=== PATIENT | female | born 1970 ===

== ENCOUNTER 2022-01-03 16:12 | Inpatient (IN) ==
--- NOTE | 2022-01-03 16:54 | Emergency Department Note ---
HPI General Chief complaint: Shortness of Breath/Dyspnea Stated complaint: CHF Time Seen by Provider: 01/03/22 16:34 Source: patient Mode of arrival: wheelchair Limitations: no limitations History of Present Illness HPI Narrative: Narrative: 51-year-old female presents to the emergency department with a 1 week history of orthopnea. She states anytime she lays down she has to sit back up to catch her breath. She has been up multiple times at night because she is short of breath. She denies chest pain or cough. She has had some swelling in her legs and abdomen. On review of systems patient admits to sweats and chills at times, feeling firm in her abdomen, and difficulty starting her urinary stream. Her past medical history is positive for hypertension. Patient was seen at the [facility] prior to coming to the emergency department. She had a chest x-ray showing heart failure. Labs are drawn prior to coming to the emergency department and CBC, CMP, and troponin are pending. Related Data Home Medications Medication Instructions Recorded Confirmed lisinopril 10 mg tablet 10 mg PO QDAY 01/03/22 01/03/22 Allergies Allergy/AdvReac Type Severity Reaction Status Date / Time No Known Drug Allergies Allergy Verified 01/03/22 21:55 Review of Systems ROS ROS Narrative: Narrative: All systems ED: reviewed and negative except as stated. [facility] Narrative Patient History Narrative: Narrative: Medical/Surgical/Family History All Active Problems (Updated 01/03/22 @ 19:53 by Amparo Ibarra PA-C) Congestive heart failure (Acute) Social History Smoking Status: Former smoker Exam Narrative Narrative: Narrative: General Limitations: no limitations Head Head: Present atraumatic and normocephalic Neck Neck: Present normal inspection and other (No JVD) Chest Chest: Present normal inspection Respiratory Respiratory: Present rales/crackles Cardiovascular Cardiovascular: Present regular rate and normal heart sounds Adbominal Abdominal: Present other (Firm lower abdomen); Absent tenderness Extremities Extremities: Present other (2+ edema bilaterally) Back Back: Present normal inspection Neurological Neurological: Present alert and oriented X3 Skin Skin: Present warm (WNL) and dry Course Vital Signs Vital signs: Vital Signs Temperature 97.7 F 01/03/22 16:14 Pulse Rate 97 H 01/03/22 16:14 Respiratory Rate 20 01/03/22 16:14 Blood Pressure 172/115 01/03/22 16:14 Pulse Oximetry (%) 97 01/03/22 16:14 Oxygen Delivery Method 01/03/22 16:14 Temperature 97.0 F 01/04/22 04:01 Pulse Rate 88 01/04/22 08:03 Respiratory Rate 15 01/04/22 08:03 Blood Pressure 141/111 01/04/22 08:01 Pulse Oximetry (%) 99 01/04/22 08:03 Oxygen Delivery Method 01/04/22 06:01 Oxygen Flow Rate (L/min) 2 01/04/22 06:01 MDM MDM Narrative Medical decision making narrative: Narrative: EKG normal sinus rhythm, rate of 94, no ST segment changes, normal axis, normal intervals. Labs reviewed. Chest x-ray shows pulmonary edema questionable left lower quadrant infiltrate. BNP is 9044. She was dosed with Lasix 40 mg IV. I spoke with Dr. Flynn, hospitalist, who is agreed to admit this patient. Lab Data Result diagrams: 01/04/22 05:16 01/04/22 05:16 Labs: Lab Results 01/03/22 01/03/22 01/03/22 Range/Units 15:57 16:55 16:55 WBC TNP RBC TNP Hgb TNP Hct TNP POC Hct (36-48) MCV TNP MCH TNP MCHC TNP RDW TNP Plt Count TNP MPV TNP Immature Gran % (Auto) TNP Neut % (Auto) TNP Lymph % (Auto) TNP [place] % (Auto) TNP Eos % (Auto) TNP Baso % (Auto) TNP Lymph # (Auto) TNP [place] # (Auto) TNP Eos # (Auto) TNP Baso # (Auto) TNP Immature Gran # TNP Absolute Neutrophils TNP Differential Comment TNP Haptoglobin 142 (30-200) mg/dL POC Sodium (133-145) POC Potassium (3.3-5.1) POC Chloride (96-108) POC Total CO2 (22-30) POC BUN (6-20) POC Creatinine (0.6-1.2) POC Glucose (70-105) POC WB Ioniz Calcium (1.16-1.32) Iron 28 L (37-145) ug/dL TIBC 437 H (228-428) ug/dl Unsat Iron Binding 409 H (112-346) mcg/dL Transferrin % Sat 6 L (15-50) % Ferritin 22.9 (13.0-150.0) ng/mL Total Bilirubin 2.0 H (0.1-1.0) mg/dL Direct Bilirubin 0.3 H (<0.3) mg/dL AST 41 H (<32) U/L ALT 25 (<40) U/L Alkaline Phosphatase 80 (39-117) U/L Lactate Dehydrogenase 529 H (135-225) U/L NT-Pro-B Natriuret Pep TNP Total Protein 6.9 (5.9-8.4) gm/dL Albumin 3.9 (3.2-5.2) gm/dL Globulin 3.0 (2.2-3.7) gm/dL Ur Random Creatinine (28.0-217.0) mg/dL U Random Total Protein mg/dL U [place] Prot/Creat Ratio (<0.20) 01/03/22 01/03/22 Range/Units 17:13 20:36 WBC RBC Hgb Hct POC Hct 37.0 (36-48) MCV MCH MCHC RDW Plt Count MPV Immature Gran % (Auto) Neut % (Auto) Lymph % (Auto) [place] % (Auto) Eos % (Auto) Baso % (Auto) Lymph # (Auto) [place] # (Auto) Eos # (Auto) Baso # (Auto) Immature Gran # Absolute Neutrophils Differential Comment Haptoglobin (30-200) mg/dL POC Sodium 141 (133-145) POC Potassium 4.8 (3.3-5.1) POC Chloride 108 (96-108) POC Total CO2 24.0 (22-30) POC BUN 27 H (6-20) POC Creatinine 0.9 (0.6-1.2) POC Glucose 96 (70-105) POC WB Ioniz Calcium 1.16 (1.16-1.32) Iron (37-145) ug/dL TIBC (228-428) ug/dl Unsat Iron Binding (112-346) mcg/dL Transferrin % Sat (15-50) % Ferritin (13.0-150.0) ng/mL Total Bilirubin (0.1-1.0) mg/dL Direct Bilirubin (<0.3) mg/dL AST (<32) U/L ALT (<40) U/L Alkaline Phosphatase (39-117) U/L Lactate Dehydrogenase (135-225) U/L NT-Pro-B Natriuret Pep Total Protein (5.9-8.4) gm/dL Albumin (3.2-5.2) gm/dL Globulin (2.2-3.7) gm/dL Ur Random Creatinine 60.8 (28.0-217.0) mg/dL U Random Total Protein 33 mg/dL U [place] Prot/Creat Ratio 0.54 H (<0.20) Discharge Plan Patient/Caregiver Discharge Instructions Pt seen by [employer] SUSPENSION AIDE/PA only: Yes Clinical Impression: Congestive heart failure Patient Disposition: Xfer As Inpt ([facility]) Discharge Date/Time: 01/03/22 21:36
[2022-01-03 17:17] LABS: POC Calcium, Ionized 1.16 (1.16-1.32); POC Creatinine 0.9 (0.6-1.2); POC Potassium 4.8 (3.3-5.1)
[2022-01-03 18:16] LABS: ALT/SGPT 25 U/L (<40); AST/SGOT 41 U/L (<32); Albumin 3.9 gm/dL (3.2-5.2); Alkaline Phosphatase 80 U/L (39-117); Bilirubin,Direct 0.3 mg/dL (<0.3)
[2022-01-03] MEDS ORDERED: FUROSEMIDE 40 MG/4 ML VIAL IV ONE (18:38)
--- NOTE | 2022-01-03 20:04 | Internal Med History&Physical ---
HPI History of Present Illness Patient information: Note initiated : 01/03/22 at 7:57 pm Service Date, if different from initiated Date: [] Patient: Tiffany Contreras a 51 y/o F admitted on for CHF. Chief Complaint: [] History of present illness: Ms. Contreras is a 51-year-old female with a history of hypertension previously treated with lisinopril but currently untreated, tobacco use disorder, obesity who presented to the emergency department with about 3 weeks of shortness of breath. The patient also endorses orthopnea symptoms over the last couple of weeks. Prior to the onset of her symptoms, the patient says she did not have any limitations secondary to shortness of breath but now she can barely accomplish simple activities of daily living without dyspnea. Associated with these symptoms are abdominal distention, bilateral lower extremity edema and diarrhea. The patient denies recent fevers chills, no chest pains. The patient denies alcohol use and substance use in general except for tobacco which she recently discontinued because she was short of breath. In the emergency department the patient was found to have a microcytic anemia with a hemoglobin of 9.8. Renal function and electrolytes were stable, the patient did have an elevated total bilirubin of 2.0 with a direct bilirubin component of 0.3. AST was mildly elevated at 41. NT proBNP was elevated at 9044. Chest x-ray was consistent with pulmonary vascular congestion. Clinically the patient appears to be an congestive heart failure. Review of systems Constitutional: no fever, fatigue, or weight loss Eyes: no vision changes or pain Cardiovascular: no chest pain, no palpitations Respiratory: Positive for dyspnea and orthopnea, positive for a cough occasionally productive of clear sputum Gastrointestinal: Positive for abdominal distention and diarrhea Genitourinary: Positive for difficulty voiding Musculoskeletal: Positive for bilateral lower extremity edema, no arthralgia or myalgia Integumentary: no skin lesion or wound Neurological: no focal weakness or numbness Psychiatric: Positive for anxiety and difficulty sleeping Physical exam Head: Atraumatic, normal inspection. Eyes: normal appearance, no scleral icterus. Neck: full ROM Respiratory: Respiratory rate in the mid 20s, bilateral crackles Cardiovascular: normal rate and rhythm, S1, S2. GI/Abdominal: Obesely distended, soft, nontender, no guarding. Extremities: Bilateral pitting edema, full range of motion, nontender. Neurological: CN II-XII intact, intact motor, intact sensation. Psychiatric: Appears mildly anxious. Skin: warm, normal color PFSH PFSH All Active Problems (Updated 01/03/22 @ 19:53 by Amparo Ibarra PA-C) Congestive heart failure (Acute) Social History smoking status: Former smoker MEDS/ALLERGIES Home Medications and Allergies Home Medications Medication Instructions Recorded Confirmed Type No Known Home Meds 01/03/22 01/03/22 History Allergies Allergy/AdvReac Type Severity Reaction Status Date / Time No Known Drug Allergies Allergy Verified 01/03/22 16:14 EXAM Constitutional Vitals: Temp Pulse Resp BP Pulse Ox O2 Del Method 97.7 F 94 H 25 H 140/102 99 01/03/22 16:14 01/03/22 18:18 01/03/22 19:39 01/03/22 17:18 01/03/22 18:18 01/03/22 16:14 DATA Data Completed and Pending Labs: Labs from last 24 hours 01/03/22 01/03/22 01/03/22 17:13 16:55 15:57 WBC TNP RBC TNP Hgb TNP Hct TNP POC Hct 37.0 MCV TNP MCH TNP MCHC TNP RDW TNP Plt Count TNP MPV TNP Immature Gran % (Auto) TNP Neut % (Auto) TNP Lymph % (Auto) TNP [place] % (Auto) TNP Eos % (Auto) TNP Baso % (Auto) TNP Lymph # (Auto) TNP [place] # (Auto) TNP Eos # (Auto) TNP Baso # (Auto) TNP Immature Gran # TNP Absolute Neutrophils TNP Differential Comment TNP POC Sodium 141 POC Potassium 4.8 POC Chloride 108 POC Total CO2 24.0 POC BUN 27 H POC Creatinine 0.9 POC Glucose 96 POC WB Ioniz Calcium 1.16 Total Bilirubin 2.0 H Direct Bilirubin 0.3 H AST 41 H ALT 25 Alkaline Phosphatase 80 NT-Pro-B Natriuret Pep TNP Total Protein 6.9 Albumin 3.9 Globulin 3.0 A/P Narrative A/P Narrative: Assessment: 51-year-old female with a history of hypertension, currently untreated, obesity admitted for dyspnea secondary to congestive heart failure. Patient's symptoms have been worsening for about 3 weeks, she does not have a prior diagnosis of heart failure. #Acute heart failure, suspect HFrEF #Microcytic anemia #Hyperbilirubinemia #Diarrhea #Essential hypertension #Obesity BMI 47 #At risk for LIZ Plan -Lasix 40 mg IV every 12 hours, titrate to effect. -Monitor renal function, electrolytes, urine output, daily weight. -Transthoracic echocardiogram. -Check iron studies, haptoglobin, LDH. -Check urine to protein creatinine ratio -Follow hemoglobin, consider endoscopic GI work-up if downtrending. -Follow LFTs, check INR. -Check TSH. -jet inspector while diuresing with IV diuretic. -Low-sodium diet. -PT consult. -Consider cardiology consult depending on echo results. -DVT prophylaxis: Lovenox -CODE STATUS: Full -Disposition: Home when stable. - Time Spent With Patient Time: Total time spent is greater than 50% in coordination of care (as documented) at patient's floor/unit and/or counseling patient:
[2022-01-03] MEDS ORDERED: ONDANSETRON 4 MG/2 ML VIAL IV PRN (21:51)
[2022-01-03] MEDS ORDERED: SENNOSIDES 1 TABLET PO PRN (21:51)
[2022-01-03] MEDS ORDERED: LACTULOSE 20 GM/30 ML ORAL.SOL PO PRN (21:51)
[2022-01-03] MEDS: DOCUSATE SODIUM 100 MG CAPSULE PO SCH (22:22)
[2022-01-03] MEDS: 0.9 % SODIUM CHLORIDE 10 ML SYRINGE IV SCH (22:22)
[2022-01-03 22:38] LABS: Ferritin 22.9 ng/mL (13.0-150.0)
[2022-01-04 00:03] LABS: Creatinine, Spot Urine 60.8 mg/dL (28.0-217.0); Pro:Crea Ratio 0.54 (<0.20)
[2022-01-04] MEDS ORDERED: cefTRIAXone 1 GM VIAL ONE (00:54)
[2022-01-04] MEDS: 0.9 % SODIUM CHLORIDE 10 ML SYRINGE IV SCH ×3 (05:16→19:59)
[2022-01-04] MEDS: ACETAMINOPHEN 325 MG TABLET PO PRN (06:14)
[2022-01-04 07:04] LABS: INR 1.1 (0.9-1.1); Prothrombin Time 14.8 sec (11.9-14.5)
[2022-01-04 07:14] LABS: Basophils # (Auto) 0.04 K/mcL (0.00-0.30); Basophils % (Auto) 0.4 % (0.0-2.0); Eosinophils % (Auto) 3.2 % (0.0-7.0); Hematocrit 32.5 % (34.1-44.9); Hemoglobin 9.6 g/dL (11.2-15.7); Lymphocytes # (Auto) 1.82 K/mcL (1.50-4.80); Lymphocytes % (Auto) 19.6 % (15.5-49.0); Mean Cell Volume 68.4 fL (80.0-100.0); Mean Corpuscular HGB Conc 29.5 g/dL (31.0-36.0); Monocytes # (Auto) 0.75 K/mcL (0.10-0.90); Monocytes % (Auto) 8.1 % (1.0-12.0); Neutrophils % (Auto) 68.4 % (38.0-78.0); Platelet Count 223 K/mcL (140-440); RBC 4.75 M/mcL (3.59-5.38); Red Cell Distribution Width 18.6 % (11.5-14.5); WBC 9.3 K/mcL (4.5-11.0)
[2022-01-04 07:32] LABS: ALT/SGPT 19 U/L (<40); AST/SGOT 21 U/L (<32); Albumin 3.3 gm/dL (3.2-5.2); Albumin/Globulin Ratio 1.2 (1.0-2.3); Alkaline Phosphatase 71 U/L (39-117); Bilirubin,Direct 0.3 mg/dL (<0.3); Blood Urea Nitrogen 16 mg/dL (6-20); Calcium 9.3 mg/dL (8.6-10.4); Carbon Dioxide 23 mmol/L (22-30); Chloride 106 mmol/L (96-108); Globulin 2.7 gm/dL (2.2-3.7); Glomerular Filtration Rate 58; Glucose 91 mg/dL (70-105); Lactate Dehydrogenase 318 U/L (135-225); Phosphorous 4.4 mg/dL (2.5-4.5); Thyroid Stimulating Hormone 4.29 uIU/mL (0.27-5.01); Triglycerides 64 mg/dL (<150); Uric Acid 6.6 mg/dL (2.5-8.0)
[2022-01-04] MEDS ORDERED: FUROSEMIDE 40 MG/4 ML VIAL IV SCH (08:00)
[2022-01-04] MEDS: DOCUSATE SODIUM 100 MG CAPSULE PO SCH ×2 (08:20→20:34)
[2022-01-04] MEDS: ENOXAPARIN 40 MG/0.4 ML SYRINGE SQ SCH (08:20)
[2022-01-04] MEDS: IRON SUCROSE COMPLEX 100 MG/5 ML VIAL IV SCH (08:20)
[2022-01-04] MEDS: FUROSEMIDE 40 MG/4 ML VIAL IV SCH ×2 (08:20→19:58)
[2022-01-04] MEDS: LISINOPRIL 10 MG TABLET PO SCH (08:55)
--- NOTE | 2022-01-04 16:36 | Internal Med Progress Note ---
SUBJECTIVE Subjective Patient information: Note initiated : 01/04/22 at 4:24 pm Service Date, if different from initiated Date: [] Patient: Tiffany Contreras a 51 y/o F admitted on 01/03/22 for CHF. Chief Complaint: [] Interval history: Ms. Contreras is a 51-year-old female with a history of hypertension previously treated with lisinopril but currently untreated, tobacco use disorder, obesity who presented to the emergency department with about 3 weeks of shortness of breath. The patient also endorses orthopnea symptoms over the last couple of weeks. Prior to the onset of her symptoms, the patient says she did not have any limitations secondary to shortness of breath but now she can barely accomplish simple activities of daily living without dyspnea. Associated with these symptoms are abdominal distention, bilateral lower extremity edema and diarrhea. The patient denies recent fevers chills, no chest pains. The patient denies alcohol use and substance use in general except for tobacco which she recently discontinued because she was short of breath. In the emergency department the patient was found to have a microcytic anemia with a hemoglobin of 9.8. Renal function and electrolytes were stable, the patient did have an elevated total bilirubin of 2.0 with a direct bilirubin component of 0.3. AST was mildly elevated at 41. NT proBNP was elevated at 9044. Chest x-ray was consistent with pulmonary vascular congestion. Clinically the patient appears to be an congestive heart failure. 11/10 Elevated blood pressure overnight and hypoxic while sleeping however the patient is on room air while awake. Diuresing well with IV Lasix 40 mg every 12 hours. Started lisinopril for elevated blood pressure. Patient likely has sleep apnea given nocturnal hypoxia, she is agreeable to try CPAP at bedtime. Later, the transthoracic echocardiogram report became available showing an LVEF of 25 to 30%, mildly dilated right ventricle, mildly reduced right ventricular systolic function. There was moderate mitral regurgitation and moderate tricuspid regurgitation. Started low-dose Toprol given reduced LVEF. Iron studies consistent with iron deficiency anemia, started Venofer IV. Patient has never had a colonoscopy, has not noticed melena or bloody stools. She denies recent vaginal bleeding. Hemoglobin level stable. Haptoglobin level normal. Urine protein creatinine level was mildly elevated at .54. TSH was normal. Physical exam Head: Atraumatic, normal inspection. Eyes: normal appearance, no scleral icterus. Neck: full ROM Respiratory: Respiratory rate in the teens to low 20s, no respiratory distress Cardiovascular: normal rate and rhythm, S1, S2. GI/Abdominal: Obesely distended, soft, nontender, no guarding. Extremities: Improving bilateral pitting edema, full range of motion, nontender. Neurological: CN II-XII intact, intact motor, intact sensation. Psychiatric: Appears mildly anxious. Skin: warm, normal color Constitutional Vitals: Vital Signs Temp Pulse Resp BP Pulse Ox O2 Del Method O2 Flow Rate 97.5 F 91 H 20 132/85 95 2 01/04/22 16:01 01/04/22 16:15 01/04/22 16:15 01/04/22 16:01 01/04/22 16:15 01/04/22 14:17 01/04/22 06:01 Period Temp Pulse Resp BP Sys/Ponce Pulse Ox O2 Del Method O2 Flow Rate Last 24 Hr 97.0 F-97.8 F 81-103 14-31 131-161/77-113 94-100 Nasal Cannula-Room Air 2-2 Intake and Output 01/04/22 01/04/22 01/04/22 05:59 13:59 21:59 Intake Total 480 1360 200 Output Total 3050 2350 Balance -2570 -990 200 Weight 141.113 kg Patient Weight 01/05/22 05:59 Weight 141.113 kg Intake & Output: Intake & Output 01/04/22 01/04/22 01/04/22 05:59 13:59 21:59 Intake Total 480 1360 200 Output Total 3050 2350 Balance -2570 -990 200 Weight 141.113 kg Intake: Oral 480 1360 200 Output: Void Amount 3050 2350 Other: Meal Dinner Lunch snack Percent of Meal Consumed 100% 100% Feeding Ability Independent Independent Urine Appearance Clear Clear Urine Color Pale Yellow Urine Odor Normal Stool Size Large Stool Color Brown Stool Consistency Formed # Bowel Movements 1 OBJ DATA Labs CBC & Chem 7: 01/04/22 12:14 01/04/22 05:16 Labs: Abnormal Lab Results 01/04/22 01/04/22 01/04/22 12:14 05:16 05:16 Hgb 9.9 L Hct MCV MCH MCHC RDW PT 14.8 H POC BUN Iron TIBC Unsat Iron Binding Transferrin % Sat Total Bilirubin 2.0 H Direct Bilirubin 0.3 H AST Lactate Dehydrogenase 318 H U [place] Prot/Creat Ratio 01/04/22 01/03/22 01/03/22 05:16 20:36 17:13 Hgb 9.6 L Hct 32.5 L MCV 68.4 L MCH 20.2 L MCHC 29.5 L RDW 18.6 H PT POC BUN 27 H Iron TIBC Unsat Iron Binding Transferrin % Sat Total Bilirubin Direct Bilirubin AST Lactate Dehydrogenase U [place] Prot/Creat Ratio 0.54 H 01/03/22 01/03/22 16:55 16:55 Hgb Hct MCV MCH MCHC RDW PT POC BUN Iron 28 L TIBC 437 H Unsat Iron Binding 409 H Transferrin % Sat 6 L Total Bilirubin 2.0 H Direct Bilirubin 0.3 H AST 41 H Lactate Dehydrogenase 529 H U [place] Prot/Creat Ratio Meds: Medications Acetaminophen (Acetaminophen 325 Mg Tablet) 650 mg PO Q6HP PRN; Protocol PRN Reason: Per Pain Protocol/Fever > 101 Last Admin: 01/04/22 06:14 Dose: 650 mg Docusate Sodium (Docusate Sodium 100 Mg Capsule) 100 mg PO BID [facility] Last Admin: 01/04/22 08:20 Dose: 100 mg Enoxaparin Sodium (Enoxaparin 40 Mg/0.4 Ml Syringe) 40 mg SQ DAILY [facility] Last Admin: 01/04/22 08:20 Dose: 40 mg Furosemide (Furosemide 40 Mg/4 Ml Vial) 40 mg IV Q12H [facility] Last Admin: 01/04/22 08:20 Dose: 40 mg Iron Sucrose (Iron Sucrose Complex 100 Mg/5 Ml Vial) 200 mg IV DAILY [facility] Stop: 01/08/22 09:01 Last Admin: 01/04/22 08:20 Dose: 200 mg Lactulose (Lactulose 20 Gm/30 Ml Oral.Diamond) 10 gm PO DAILYP PRN PRN Reason: Constipation Lisinopril (Lisinopril 10 Mg Tablet) 10 mg PO DAILY [facility] Last Admin: 01/04/22 08:55 Dose: 10 mg Metoprolol Succinate (Metoprolol Succinate 25 Mg Tab.Xl.24h) 25 mg PO HS [facility] Ondansetron HCl (Ondansetron 4 Mg/2 Ml Vial) 4 mg IV Q4HP PRN; Protocol PRN Reason: Nausea And Vomiting Senna (Sennosides 1 Tablet) 2 tab PO HSP PRN PRN Reason: Constipation Sodium Chloride (0.9 % Sodium Chloride 10 Ml Syringe) 10 ml IV Q8 ALEX Last Admin: 01/04/22 15:10 Dose: 10 ml A/P Narrative A/P Narrative: Assessment: 51-year-old female with a history of hypertension, currently untreated, obesity admitted for dyspnea secondary to acute systolic heart failure which is a new diagnosis. There is no evidence of acute coronary syndrome, the patient denies recent chest pain prior to admission. Patient's symptoms had been worsening for about 3 weeks prior to this hospital admission. #Acute systolic heart failure #Iron deficiency anemia, stable #Hyperbilirubinemia #Diarrhea, stable #Essential hypertension #Obesity BMI 47 #Probable obstructive sleep apnea Plan -Lasix 40 mg IV every 12 hours, titrate to effect. -Monitor renal function, electrolytes, urine output, daily weight. -Start lisinopril and Toprol for HFrEF, titrate as tolerated. -Consider adding spironolactone prior to discharge. -Venofer 200 mg IV daily x5 for iron deficiency, discharged with oral iron supplementation. -Follow hemoglobin, consider endoscopic GI work-up if downtrending. -quality assurance monitor final while diuresing with IV diuretic. -Low-sodium diet. -PT consult. -CPAP at bedtime. -DVT prophylaxis: Lovenox -CODE STATUS: Full -Disposition: Home when stable, optimally the patient would be on goal-directed medical therapy with beta-rich, BRIANA-I, mineralocorticoid inhibitor, and SGLT2 inhibitor. Referral for cardiology at discharge, establish with primary care provider.. Recommend screening colonoscopy after discharge, outpatient sleep study, follow-up hemoglobin and iron studies. - Time Spent With Patient Time: Total time spent is greater than 50% in coordination of care (as documented) at patient's floor/unit and/or counseling patient: QUALITY VTE Deep Vein Thrombosis/Pulmonary Embolism Present on Admission: No
[2022-01-04] MEDS: METOPROLOL SUCCINATE 25 MG TAB.XL.24H PO SCH (19:58)
[2022-01-04] MEDS ORDERED: METOPROLOL SUCCINATE 25 MG TAB.XL.24H PO SCH (21:00)
[2022-01-05] MEDS: ACETAMINOPHEN 325 MG TABLET PO PRN (01:13)
[2022-01-05] MEDS: 0.9 % SODIUM CHLORIDE 10 ML SYRINGE IV SCH ×3 (05:36→20:01)
[2022-01-05 07:31] LABS: Basophils # (Auto) 0.03 K/mcL (0.00-0.30); Basophils % (Auto) 0.3 % (0.0-2.0); Eosinophils # (Auto) 0.29 K/mcL (0.00-0.70); Eosinophils % (Auto) 3.1 % (0.0-7.0); Hematocrit 34.9 % (34.1-44.9); Hemoglobin 10.3 g/dL (11.2-15.7); Lymphocytes # (Auto) 2.07 K/mcL (1.50-4.80); Mean Cell Volume 68.2 fL (80.0-100.0); Mean Corpuscular HGB Conc 29.5 g/dL (31.0-36.0); Mean Platelet Volume 11.8 fL (8.8-12.5); Monocytes # (Auto) 0.77 K/mcL (0.10-0.90); Monocytes % (Auto) 8.2 % (1.0-12.0); Neutrophils % (Auto) 66.2 % (38.0-78.0); Platelet Count 224 K/mcL (140-440); RBC 5.12 M/mcL (3.59-5.38); Red Cell Distribution Width 18.9 % (11.5-14.5); WBC 9.4 K/mcL (4.5-11.0)
[2022-01-05 07:45] LABS: ALT/SGPT 18 U/L (<40); AST/SGOT 20 U/L (<32); Albumin 3.3 gm/dL (3.2-5.2); Albumin/Globulin Ratio 1.2 (1.0-2.3); Alkaline Phosphatase 75 U/L (39-117); Bilirubin,Direct 0.3 mg/dL (<0.3); Bilirubin,Total 1.7 mg/dL (0.1-1.0); Blood Urea Nitrogen 16 mg/dL (6-20); Calcium 9.4 mg/dL (8.6-10.4); Carbon Dioxide 27 mmol/L (22-30); Chloride 98 mmol/L (96-108); Globulin 2.7 gm/dL (2.2-3.7); Glomerular Filtration Rate 65; Glucose 90 mg/dL (70-105); Lactate Dehydrogenase 353 U/L (135-225); Phosphorous 4.5 mg/dL (2.5-4.5); Triglycerides 71 mg/dL (<150); Uric Acid 7.4 mg/dL (2.5-8.0)
[2022-01-05] MEDS ORDERED: POTASSIUM CHLORIDE 20 MEQ TABLET PO ONE (08:28)
--- NOTE | 2022-01-05 08:28 | Internal Med Progress Note ---
SUBJECTIVE Subjective Patient information: Note initiated : 01/05/22 at 8:28 am Service Date, if different from initiated Date: [] Patient: Tiffany Contreras a 51 y/o F admitted on 01/03/22 for CHF. Chief Complaint: [] Interval history: Ms. Contreras is a 51-year-old female with a history of hypertension previously treated with lisinopril but currently untreated, tobacco use disorder, obesity who presented to the emergency department with about 3 weeks of shortness of breath. The patient also endorses orthopnea symptoms over the last couple of weeks. Prior to the onset of her symptoms, the patient says she did not have any limitations secondary to shortness of breath but now she can barely accomplish simple activities of daily living without dyspnea. Associated with these symptoms are abdominal distention, bilateral lower extremity edema and diarrhea. The patient denies recent fevers chills, no chest pains. The patient denies alcohol use and substance use in general except for tobacco which she recently discontinued because she was short of breath. In the emergency department the patient was found to have a microcytic anemia with a hemoglobin of 9.8. Renal function and electrolytes were stable, the patient did have an elevated total bilirubin of 2.0 with a direct bilirubin component of 0.3. AST was mildly elevated at 41. NT proBNP was elevated at 9044. Chest x-ray was consistent with pulmonary vascular congestion. Clinically the patient appears to be an congestive heart failure. 01/04 Elevated blood pressure overnight and hypoxic while sleeping however the patient is on room air while awake. Diuresing well with IV Lasix 40 mg every 12 hours. Started lisinopril for elevated blood pressure. Patient likely has sleep apnea given nocturnal hypoxia, she is agreeable to try CPAP at bedtime. Later, the transthoracic echocardiogram report became available showing an LVEF of 25 to 30%, mildly dilated right ventricle, mildly reduced right ventricular systolic function. There was moderate mitral regurgitation and moderate tricuspid regurgitation. Started low-dose Toprol given reduced LVEF. Iron studies consistent with iron deficiency anemia, started Venofer IV. Patient has never had a colonoscopy, has not noticed melena or bloody stools. She denies recent vaginal bleeding. Hemoglobin level stable. Haptoglobin level normal. Urine protein creatinine level was mildly elevated at .54. TSH was normal. 01/05 Vital stable overnight, the patient did require oxygen supplementation once again when sleeping. She did not tolerate the CPAP. Potassium low normal, replaced. Hemoglobin improving. Still volume overloaded, continue Lasix 40 mg every 12 hours, diuresing well. Physical exam Head: Atraumatic, normal inspection. Eyes: normal appearance, no scleral icterus. Neck: full ROM Respiratory: Respiratory rate in the teens to low 20s, no respiratory distress Cardiovascular: normal rate and rhythm, S1, S2. GI/Abdominal: Obesely distended, soft, nontender, no guarding. Extremities: Improving bilateral pitting edema, full range of motion, nontender. Neurological: CN II-XII intact, intact motor, intact sensation. Psychiatric: Appears mildly anxious. Skin: warm, normal color Constitutional Vitals: Vital Signs Temp Pulse Resp BP Pulse Ox O2 Del Method O2 Flow Rate 98.4 F 82 15 133/92 90 0 01/05/22 08:05 01/05/22 08:05 01/05/22 08:05 01/05/22 08:05 01/05/22 08:05 01/05/22 08:05 01/05/22 08:05 Period Temp Pulse Resp BP Sys/Ponce Pulse Ox O2 Del Method O2 Flow Rate Last 24 Hr 96.8 F-98.4 F 75-97 - 118-159/77-116 90-100 Nasal Cannula- Room Air, CPAP 0-3 Intake and Output 01/04/22 01/05/22 01/05/22 21:59 05:59 13:59 Intake Total 200 600 Output Total 2475 2175 Balance -2275 -1575 Weight 137.62 kg Intake & Output: Intake & Output 01/04/22 01/05/22 01/05/22 21:59 05:59 13:59 Intake Total 200 600 Output Total 2475 2175 Balance -2275 -1575 Weight 137.62 kg Intake: Oral 200 600 Output: Void Amount 2475 2175 Other: Meal snack Nourishment/Supplement Percent of Meal Consumed 100% Feeding Ability Independent Urine Appearance Clear Clear Urine Color Pale Pale Urine Odor Normal Normal OBJ DATA Labs CBC & Chem 7: 01/05/22 05:10 01/05/22 05:10 Labs: Abnormal Lab Results 01/05/22 01/05/22 01/04/22 05:10 05:10 12:14 Hgb 10.3 L 9.9 L Hct MCV 68.2 L MCH 20.1 L MCHC 29.5 L RDW 18.9 H PT POC BUN Iron TIBC Unsat Iron Binding Transferrin % Sat Total Bilirubin 1.7 H Direct Bilirubin 0.3 H AST Lactate Dehydrogenase 353 H U [place] Prot/Creat Ratio 01/04/22 01/04/22 01/04/22 05:16 05:16 05:16 Hgb 9.6 L Hct 32.5 L MCV 68.4 L MCH 20.2 L MCHC 29.5 L RDW 18.6 H PT 14.8 H POC BUN Iron TIBC Unsat Iron Binding Transferrin % Sat Total Bilirubin 2.0 H Direct Bilirubin 0.3 H AST Lactate Dehydrogenase 318 H U [place] Prot/Creat Ratio 01/03/22 01/03/22 01/03/22 20:36 17:13 16:55 Hgb Hct MCV MCH MCHC RDW PT POC BUN 27 H Iron 28 L TIBC 437 H Unsat Iron Binding 409 H Transferrin % Sat 6 L Total Bilirubin Direct Bilirubin AST Lactate Dehydrogenase 529 H U [place] Prot/Creat Ratio 0.54 H 01/03/22 16:55 Hgb Hct MCV MCH MCHC RDW PT POC BUN Iron TIBC Unsat Iron Binding Transferrin % Sat Total Bilirubin 2.0 H Direct Bilirubin 0.3 H AST 41 H Lactate Dehydrogenase U [place] Prot/Creat Ratio Meds: Medications Acetaminophen (Acetaminophen 325 Mg Tablet) 650 mg PO Q6HP PRN; Protocol PRN Reason: Per Pain Protocol/Fever > 101 Last Admin: 01/05/22 01:13 Dose: 650 mg Docusate Sodium (Docusate Sodium 100 Mg Capsule) 100 mg PO BID [facility] Last Admin: 01/04/22 20:34 Dose: Not Given Enoxaparin Sodium (Enoxaparin 40 Mg/0.4 Ml Syringe) 40 mg SQ DAILY [facility] Last Admin: 01/04/22 08:20 Dose: 40 mg Furosemide (Furosemide 40 Mg/4 Ml Vial) 40 mg IV Q12H [facility] Last Admin: 01/04/22 19:58 Dose: 40 mg Iron Sucrose (Iron Sucrose Complex 100 Mg/5 Ml Vial) 200 mg IV DAILY [facility] Stop: 01/08/22 09:01 Last Admin: 01/04/22 08:20 Dose: 200 mg Lactulose (Lactulose 20 Gm/30 Ml Oral.Diamond) 10 gm PO DAILYP PRN PRN Reason: Constipation Lisinopril (Lisinopril 10 Mg Tablet) 10 mg PO DAILY [facility] Last Admin: 01/04/22 08:55 Dose: 10 mg Metoprolol Succinate (Metoprolol Succinate 25 Mg Tab.Xl.24h) 25 mg PO HS [facility] Last Admin: 01/04/22 19:58 Dose: 25 mg Ondansetron HCl (Ondansetron 4 Mg/2 Ml Vial) 4 mg IV Q4HP PRN; Protocol PRN Reason: Nausea And Vomiting Senna (Sennosides 1 Tablet) 2 tab PO HSP PRN PRN Reason: Constipation Sodium Chloride (0.9 % Sodium Chloride 10 Ml Syringe) 10 ml IV Q8 [facility] Last Admin: 01/05/22 05:36 Dose: 10 ml A/P Narrative A/P Narrative: Assessment: 51-year-old female with a history of hypertension, currently untreated, obesity admitted for dyspnea secondary to acute systolic heart failure which is a new diagnosis. There is no evidence of acute coronary syndrome, the patient denies recent chest pain prior to admission. Patient's symptoms had been worsening for about 3 weeks prior to this hospital admission. #Acute systolic heart failure #Iron deficiency anemia, stable #Hyperbilirubinemia, improving #Diarrhea, stable #Essential hypertension #Obesity BMI 47 #Probable obstructive sleep apnea Plan -Lasix 40 mg IV every 12 hours, titrate to effect. -Monitor renal function, electrolytes, urine output, daily weight. -Continue lisinopril and Toprol for HFrEF, titrate as tolerated. -Consider adding spironolactone prior to discharge. -Venofer 200 mg IV daily x5 for iron deficiency, discharged with oral iron supplementation. -Follow hemoglobin, consider endoscopic GI work-up if downtrending. -monitoring analyst while diuresing with IV diuretic. -Low-sodium diet. -PT consult. -CPAP at bedtime as tolerated. -DVT prophylaxis: Lovenox -CODE STATUS: Full -Disposition: Home when stable, optimally the patient would be on goal-directed medical therapy with beta-rich, BRIANA-I, mineralocorticoid inhibitor, and SGLT2 inhibitor. The patient should have a cardiac stress test in the coming weeks. Referral for cardiology at discharge, establish with primary care provider. Recommend screening colonoscopy after discharge, outpatient sleep study, follow- up hemoglobin and iron studies. - Time Spent With Patient Time: Total time spent is greater than 50% in coordination of care (as documented) at patient's floor/unit and/or counseling patient: QUALITY VTE Deep Vein Thrombosis/Pulmonary Embolism Present on Admission: No
[2022-01-05] MEDS: DOCUSATE SODIUM 100 MG CAPSULE PO SCH ×2 (08:43→20:01)
[2022-01-05] MEDS: LISINOPRIL 10 MG TABLET PO SCH (08:43)
[2022-01-05] MEDS: ENOXAPARIN 40 MG/0.4 ML SYRINGE SQ SCH (08:44)
[2022-01-05] MEDS: IRON SUCROSE COMPLEX 100 MG/5 ML VIAL IV SCH (08:44)
[2022-01-05] MEDS: FUROSEMIDE 40 MG/4 ML VIAL IV SCH ×2 (09:36→15:48)
--- NOTE | 2022-01-05 13:15 | Internal Med Progress Note ---
SUBJECTIVE Subjective Patient information: Note initiated : 01/05/22 at 1:09 pm Service Date, if different from initiated Date: [] Patient: Tiffany Contreras a 51 y/o F admitted on 01/03/22 for CHF. Chief Complaint: [] Interval history: Ms. Contreras is a 51-year-old female with a history of hypertension previously treated with lisinopril but currently untreated, tobacco use disorder, obesity who presented to the emergency department with about 3 weeks of shortness of breath. The patient also endorses orthopnea symptoms over the last couple of weeks. Prior to the onset of her symptoms, the patient says she did not have any limitations secondary to shortness of breath but now she can barely accomplish simple activities of daily living without dyspnea. Associated with these symptoms are abdominal distention, bilateral lower extremity edema and diarrhea. The patient denies recent fevers chills, no chest pains. The patient denies alcohol use and substance use in general except for tobacco which she recently discontinued because she was short of breath. In the emergency department the patient was found to have a microcytic anemia with a hemoglobin of 9.8. Renal function and electrolytes were stable, the patient did have an elevated total bilirubin of 2.0 with a direct bilirubin component of 0.3. AST was mildly elevated at 41. NT proBNP was elevated at 9044. Chest x-ray was consistent with pulmonary vascular congestion. Clinically the patient appears to be an congestive heart failure. 01/04 Elevated blood pressure overnight and hypoxic while sleeping however the patient is on room air while awake. Diuresing well with IV Lasix 40 mg every 12 hours. Started lisinopril for elevated blood pressure. Patient likely has sleep apnea given nocturnal hypoxia, she is agreeable to try CPAP at bedtime. Later, the transthoracic echocardiogram report became available showing an LVEF of 25 to 30%, mildly dilated right ventricle, mildly reduced right ventricular systolic function. There was moderate mitral regurgitation and moderate tricuspid regurgitation. Started low-dose Toprol given reduced LVEF. Iron studies consistent with iron deficiency anemia, started Venofer IV. Patient has never had a colonoscopy, has not noticed melena or bloody stools. She denies recent vaginal bleeding. Hemoglobin level stable. Haptoglobin level normal. Urine protein creatinine level was mildly elevated at .54. TSH was normal. 01/05 Vital stable overnight, the patient did require oxygen supplementation once again when sleeping. She did not tolerate the CPAP. Potassium low normal, replaced. Hemoglobin improving. Still volume overloaded, continue Lasix 40 mg every 12 hours, diuresing well. 01/06 Constitutional Vitals: Vital Signs Temp Pulse Resp BP Pulse Ox O2 Del Method O2 Flow Rate 98.4 F 82 15 133/92 90 0 01/05/22 08:05 01/05/22 08:05 01/05/22 08:05 01/05/22 08:05 01/05/22 08:05 01/05/22 08:05 01/05/22 08:05 Period Temp Pulse Resp BP Sys/Ponce Pulse Ox O2 Del Method O2 Flow Rate Last 24 Hr 96.8 F-98.4 F 75-97 - 118-159/82-116 90-100 Nasal Cannula- Room Air, CPAP 0-3 Intake and Output 01/05/22 01/05/22 01/05/22 03:59 11:59 19:59 Intake Total 600 240 Output Total 3725 425 Balance -3125 -185 Intake & Output: Intake & Output 01/05/22 01/05/22 01/05/22 03:59 11:59 19:59 Intake Total 600 240 Output Total 3725 425 Balance -3125 -185 Intake: Oral 600 240 Output: Void Amount 3725 425 Other: Meal Nourishment/Supplement Breakfast Percent of Meal Consumed 100% 100% Feeding Ability Independent Independent Urine Appearance Clear Clear Urine Color Pale Bright Yellow Urine Odor Normal Stool Size Large Stool Color Brown Green Stool Consistency Soft Exam: General: Alert, Awake, No acute Distress, obese Eyes/N/T: EOMI, Head/Neck: neck supple, CV: RRR, No murmurs, Pulm: Clear b/l, no wheezing/rhonchi/rales Abd: soft, nontender, +BS x4 Ext: no clubbing/cyanosis, b/l LE edema Neuro: Alert, no focal deficits, moves all extremities, Skin: warm/dry OBJ DATA Labs CBC & Chem 7: 01/05/22 05:10 01/05/22 05:10 Labs: Abnormal Lab Results 01/05/22 01/05/22 01/04/22 05:10 05:10 12:14 Hgb 10.3 L 9.9 L Hct MCV 68.2 L MCH 20.1 L MCHC 29.5 L RDW 18.9 H PT POC BUN Iron TIBC Unsat Iron Binding Transferrin % Sat Total Bilirubin 1.7 H Direct Bilirubin 0.3 H AST Lactate Dehydrogenase 353 H U [place] Prot/Creat Ratio 01/04/22 01/04/22 01/04/22 05:16 05:16 05:16 Hgb 9.6 L Hct 32.5 L MCV 68.4 L MCH 20.2 L MCHC 29.5 L RDW 18.6 H PT 14.8 H POC BUN Iron TIBC Unsat Iron Binding Transferrin % Sat Total Bilirubin 2.0 H Direct Bilirubin 0.3 H AST Lactate Dehydrogenase 318 H U [place] Prot/Creat Ratio 01/03/22 01/03/22 01/03/22 20:36 17:13 16:55 Hgb Hct MCV MCH MCHC RDW PT POC BUN 27 H Iron 28 L TIBC 437 H Unsat Iron Binding 409 H Transferrin % Sat 6 L Total Bilirubin Direct Bilirubin AST Lactate Dehydrogenase 529 H U [place] Prot/Creat Ratio 0.54 H 01/03/22 16:55 Hgb Hct MCV MCH MCHC RDW PT POC BUN Iron TIBC Unsat Iron Binding Transferrin % Sat Total Bilirubin 2.0 H Direct Bilirubin 0.3 H AST 41 H Lactate Dehydrogenase U [place] Prot/Creat Ratio Meds: Medications Acetaminophen (Acetaminophen 325 Mg Tablet) 650 mg PO Q6HP PRN; Protocol PRN Reason: Per Pain Protocol/Fever > 101 Last Admin: 01/05/22 01:13 Dose: 650 mg Docusate Sodium (Docusate Sodium 100 Mg Capsule) 100 mg PO BID [facility] Last Admin: 01/05/22 08:43 Dose: 100 mg Enoxaparin Sodium (Enoxaparin 40 Mg/0.4 Ml Syringe) 40 mg SQ DAILY [facility] Last Admin: 01/05/22 08:44 Dose: 40 mg Furosemide (Furosemide 40 Mg/4 Ml Vial) 40 mg IV BID [facility] Iron Sucrose (Iron Sucrose Complex 100 Mg/5 Ml Vial) 200 mg IV DAILY [facility] Stop: 01/08/22 09:01 Last Admin: 01/05/22 08:44 Dose: 200 mg Lactulose (Lactulose 20 Gm/30 Ml Oral.Diamond) 10 gm PO DAILYP PRN PRN Reason: Constipation Lisinopril (Lisinopril 10 Mg Tablet) 10 mg PO DAILY [facility] Last Admin: 01/05/22 08:43 Dose: 10 mg Metoprolol Succinate (Metoprolol Succinate 25 Mg Tab.Xl.24h) 25 mg PO HS [facility] Last Admin: 01/04/22 19:58 Dose: 25 mg Ondansetron HCl (Ondansetron 4 Mg/2 Ml Vial) 4 mg IV Q4HP PRN; Protocol PRN Reason: Nausea And Vomiting Senna (Sennosides 1 Tablet) 2 tab PO HSP PRN PRN Reason: Constipation Sodium Chloride (0.9 % Sodium Chloride 10 Ml Syringe) 10 ml IV Q8 [facility] Last Admin: 01/05/22 05:36 Dose: 10 ml A/P Narrative A/P Narrative: A: #Acute systolic(25-30%) heart failure: #Iron deficiency anemia, stable: #Hyperbilirubinemia: improving #Diarrhea: stable #Essential hypertension: #Obesity: BMI 47 #Probable obstructive sleep apnea: Plan -Lasix 40 mg IV every 12 hours, titrate to effect -Monitor renal function, electrolytes, urine output, daily weight -Continue Lisinopril/Toprol, consider adding spironolactone prior to discharge -Venofer 200 mg IV daily x5 for iron deficiency, discharged with oral iron supplementation. -Follow hemoglobin, consider endoscopic GI work-up if downtrending -bus monitor while diuresing with IV diuretic -PT consult -CPAP at bedtime as tolerated -f/u with cardiology for new Heart Failure -f/u with pulmonolgy for LIZ eval -Disposition: Home when stable, optimally the patient would be on goal-directed medical therapy with beta-rich, BRIANA-I, mineralocorticoid inhibitor, and SGLT2 inhibitor. -ppx: Lovenox CODE STATUS: Full - Time Spent With Patient Time: Total time spent is greater than 50% in coordination of care (as documented) at patient's floor/unit and/or counseling patient: QUALITY VTE Deep Vein Thrombosis/Pulmonary Embolism Present on Admission: No
[2022-01-05] MEDS ORDERED: FUROSEMIDE 40 MG/4 ML VIAL IV SCH (16:00)
[2022-01-05] MEDS: METOPROLOL SUCCINATE 25 MG TAB.XL.24H PO SCH (20:01)
[2022-01-06] MEDS: 0.9 % SODIUM CHLORIDE 10 ML SYRINGE IV SCH ×3 (05:34→20:36)
[2022-01-06 07:25] LABS: ALT/SGPT 15 U/L (<40); AST/SGOT 20 U/L (<32); Albumin 3.3 gm/dL (3.2-5.2); Albumin/Globulin Ratio 1.2 (1.0-2.3); Alkaline Phosphatase 64 U/L (39-117); Bilirubin,Direct 0.3 mg/dL (<0.3); Bilirubin,Total 1.2 mg/dL (0.1-1.0); Blood Urea Nitrogen 17 mg/dL (6-20); Calcium 9.5 mg/dL (8.6-10.4); Carbon Dioxide 31 mmol/L (22-30); Chloride 102 mmol/L (96-108); Globulin 2.7 gm/dL (2.2-3.7); Glomerular Filtration Rate 65; Glucose 72 mg/dL (70-105); Lactate Dehydrogenase 287 U/L (135-225); Phosphorous 4.6 mg/dL (2.5-4.5); Triglycerides 81 mg/dL (<150); Uric Acid 7.8 mg/dL (2.5-8.0)
[2022-01-06 07:30] LABS: Basophils # (Auto) 0.04 K/mcL (0.00-0.30); Basophils % (Auto) 0.4 % (0.0-2.0); Eosinophils # (Auto) 0.29 K/mcL (0.00-0.70); Hematocrit 34.5 % (34.1-44.9); Lymphocytes # (Auto) 1.64 K/mcL (1.50-4.80); Lymphocytes % (Auto) 17.2 % (15.5-49.0); Mean Cell Volume 68.9 fL (80.0-100.0); Monocytes % (Auto) 9.4 % (1.0-12.0); Neutrophils % (Auto) 69.6 % (38.0-78.0); Platelet Count 218 K/mcL (140-440); RBC 5.01 M/mcL (3.59-5.38); Red Cell Distribution Width 19.3 % (11.5-14.5); WBC 9.6 K/mcL (4.5-11.0)
--- NOTE | 2022-01-06 08:28 | Internal Med Progress Note ---
SUBJECTIVE Subjective Patient information: Note initiated : 01/06/22 at 8:25 am Service Date, if different from initiated Date: [] Patient: Tiffany Contreras a 51 y/o F admitted on 01/03/22 for CHF. Chief Complaint: [] Interval history: Ms. Contreras is a 51-year-old female with a history of hypertension previously treated with lisinopril but currently untreated, tobacco use disorder, obesity who presented to the emergency department with about 3 weeks of shortness of breath. The patient also endorses orthopnea symptoms over the last couple of weeks. Prior to the onset of her symptoms, the patient says she did not have any limitations secondary to shortness of breath but now she can barely accomplish simple activities of daily living without dyspnea. Associated with these symptoms are abdominal distention, bilateral lower extremity edema and diarrhea. The patient denies recent fevers chills, no chest pains. The patient denies alcohol use and substance use in general except for tobacco which she recently discontinued because she was short of breath. In the emergency department the patient was found to have a microcytic anemia with a hemoglobin of 9.8. Renal function and electrolytes were stable, the patient did have an elevated total bilirubin of 2.0 with a direct bilirubin component of 0.3. AST was mildly elevated at 41. NT proBNP was elevated at 9044. Chest x-ray was consistent with pulmonary vascular congestion. Clinically the patient appears to be an congestive heart failure. 01/04 Elevated blood pressure overnight and hypoxic while sleeping however the patient is on room air while awake. Diuresing well with IV Lasix 40 mg every 12 hours. Started lisinopril for elevated blood pressure. Patient likely has sleep apnea given nocturnal hypoxia, she is agreeable to try CPAP at bedtime. Later, the transthoracic echocardiogram report became available showing an LVEF of 25 to 30%, mildly dilated right ventricle, mildly reduced right ventricular systolic function. There was moderate mitral regurgitation and moderate tricuspid regurgitation. Started low-dose Toprol given reduced LVEF. Iron studies consistent with iron deficiency anemia, started Venofer IV. Patient has never had a colonoscopy, has not noticed melena or bloody stools. She denies recent vaginal bleeding. Hemoglobin level stable. Haptoglobin level normal. Urine protein creatinine level was mildly elevated at .54. TSH was normal. 01/05 Vital stable overnight, the patient did require oxygen supplementation once again when sleeping. She did not tolerate the CPAP. Potassium low normal, replaced. Hemoglobin improving. Still volume overloaded, continue Lasix 40 mg every 12 hours, diuresing well. 01/06 Patient feeling much better. Breathing is continue to get better. Still has some mild shortness of breath but much better. Occasional cough. Edema much improved. Review of Systems: denies headache/fever/chills/nausea/vomiting/chest or abdominal pain/diarrhea. Otherwise see above. Constitutional Vitals: Vital Signs Temp Pulse Resp BP Pulse Ox O2 Del Method O2 Flow Rate 98.1 F 72 13 160/106 97 2 01/06/22 08:01 01/06/22 08:01 01/06/22 08:01 01/06/22 08:01 01/06/22 08:01 01/06/22 06:04 01/06/22 06:04 Period Temp Pulse Resp BP Sys/Ponce Pulse Ox O2 Del Method O2 Flow Rate Last 24 Hr 97.4 F-98.2 F 72-95 12-32 143-164/81-119 89-100 CPAP-Room Air, Nasal Cannula, CPAP 2-2 Intake and Output 01/05/22 01/06/22 01/06/22 19:59 03:59 11:59 Intake Total 1320 Output Total 7225 800 550 Balance -5905 -800 -550 Weight 127.187 kg Intake & Output: Intake & Output 01/05/22 01/06/22 01/06/22 19:59 03:59 11:59 Intake Total 1320 Output Total 7225 800 550 Balance -5905 -800 -550 Weight 127.187 kg Intake: Oral 1320 Output: Void Amount 7225 800 550 Other: Meal Dinner Nourishment/Supplement Percent of Meal Consumed 100% Feeding Ability Independent Urine Appearance Clear Clear Clear Urine Color Pale Pale Dark Yellow Urine Odor Normal Strong Stool Size Small Stool Color Brown Stool Consistency Soft # Bowel Movements 1 Exam: General: Alert, Awake, No acute Distress, obese Eyes/N/T: EOMI, Head/Neck: neck supple, CV: RRR, No murmurs, Pulm: mild rales b/l, no wheezing Abd: soft, nontender, +BS x4 Ext: no clubbing/cyanosis, 1+ b/l LE edema Neuro: Alert, no focal deficits, moves all extremities, Skin: warm/dry OBJ DATA Labs CBC & Chem 7: 01/06/22 04:12 01/06/22 04:12 Labs: Abnormal Lab Results 01/06/22 01/06/22 01/05/22 04:12 04:12 05:10 Hgb 10.0 L Hct MCV 68.9 L MCH 20.0 L MCHC 29.0 L RDW 19.3 H PT Carbon Dioxide 31 H POC BUN Phosphorus 4.6 H Iron TIBC Unsat Iron Binding Transferrin % Sat Total Bilirubin 1.2 H 1.7 H Direct Bilirubin 0.3 H 0.3 H AST Lactate Dehydrogenase 287 H 353 H U [place] Prot/Creat Ratio 01/05/22 01/04/22 01/04/22 05:10 12:14 05:16 Hgb 10.3 L 9.9 L Hct MCV 68.2 L MCH 20.1 L MCHC 29.5 L RDW 18.9 H PT 14.8 H Carbon Dioxide POC BUN Phosphorus Iron TIBC Unsat Iron Binding Transferrin % Sat Total Bilirubin Direct Bilirubin AST Lactate Dehydrogenase U [place] Prot/Creat Ratio 01/04/22 01/04/22 01/03/22 05:16 05:16 20:36 Hgb 9.6 L Hct 32.5 L MCV 68.4 L MCH 20.2 L MCHC 29.5 L RDW 18.6 H PT Carbon Dioxide POC BUN Phosphorus Iron TIBC Unsat Iron Binding Transferrin % Sat Total Bilirubin 2.0 H Direct Bilirubin 0.3 H AST Lactate Dehydrogenase 318 H U [place] Prot/Creat Ratio 0.54 H 01/03/22 01/03/22 01/03/22 17:13 16:55 16:55 Hgb Hct MCV MCH MCHC RDW PT Carbon Dioxide POC BUN 27 H Phosphorus Iron 28 L TIBC 437 H Unsat Iron Binding 409 H Transferrin % Sat 6 L Total Bilirubin 2.0 H Direct Bilirubin 0.3 H AST 41 H Lactate Dehydrogenase 529 H U [place] Prot/Creat Ratio Meds: Medications Acetaminophen (Acetaminophen 325 Mg Tablet) 650 mg PO Q6HP PRN; Protocol PRN Reason: Per Pain Protocol/Fever > 101 Last Admin: 01/05/22 01:13 Dose: 650 mg Docusate Sodium (Docusate Sodium 100 Mg Capsule) 100 mg PO BID ALEX Last Admin: 01/05/22 20:01 Dose: Not Given Enoxaparin Sodium (Enoxaparin 40 Mg/0.4 Ml Syringe) 40 mg SQ DAILY [facility] Last Admin: 01/05/22 08:44 Dose: 40 mg Furosemide (Furosemide 40 Mg/4 Ml Vial) 40 mg IV BIDD [facility] Last Admin: 01/05/22 15:48 Dose: 40 mg Iron Sucrose (Iron Sucrose Complex 100 Mg/5 Ml Vial) 200 mg IV DAILY [facility] Stop: 01/08/22 09:01 Last Admin: 01/05/22 08:44 Dose: 200 mg Lactulose (Lactulose 20 Gm/30 Ml Oral.[place]) 10 gm PO DAILYP PRN PRN Reason: Constipation Lisinopril (Lisinopril 10 Mg Tablet) 10 mg PO DAILY [facility] Last Admin: 01/05/22 08:43 Dose: 10 mg Metoprolol Succinate (Metoprolol Succinate 25 Mg Tab.Xl.24h) 25 mg PO HS [facility] Last Admin: 01/05/22 20:01 Dose: 25 mg Ondansetron HCl (Ondansetron 4 Mg/2 Ml Vial) 4 mg IV Q4HP PRN; Protocol PRN Reason: Nausea And Vomiting Senna (Sennosides 1 Tablet) 2 tab PO HSP PRN PRN Reason: Constipation Sodium Chloride (0.9 % Sodium Chloride 10 Ml Syringe) 10 ml IV Q8 [facility] Last Admin: 01/06/22 05:34 Dose: 10 ml A/P Narrative A/P Narrative: A: #Acute systolic(25-30%) heart failure: -good UOP #Acute hypoxic respiratory failure: 2/2 above #Iron deficiency anemia, stable: #Hyperbilirubinemia: improving #Diarrhea: resolved #Essential hypertension: #Obesity: BMI 47 #Probable obstructive sleep apnea: Plan -Lasix 40 IV decrease frequency -Monitor renal function, electrolytes, urine output, daily weight -Continue Lisinopril/Toprol, consider adding spironolactone prior to discharge -Venofer 200 mg IV daily x5 for iron deficiency, discharged with oral iron supplementation. -PT consult -CPAP at bedtime as tolerated -f/u with cardiology for new Heart Failure -f/u with pulmonolgy for LIZ eval -Disposition: Home when stable, optimally the patient would be on goal-directed medical therapy with beta-rich, BRIANA-I, mineralocorticoid inhibitor, and SGLT2 inhibitor. -ppx: Lovenox CODE STATUS: Full - Time Spent With Patient Time: Total time spent is greater than 50% in coordination of care (as documented) at patient's floor/unit and/or counseling patient: Total time spent with greater than 50% in coordination of care (as documented) at patient's floor/unit and/or counseling patient:: 25 - 35 minutes QUALITY VTE Deep Vein Thrombosis/Pulmonary Embolism Present on Admission: No
[2022-01-06] MEDS ORDERED: acetaZOLAMIDE SOD 500 MG VIAL IV SCH (08:45)
[2022-01-06] MEDS: ENOXAPARIN 40 MG/0.4 ML SYRINGE SQ SCH (09:57)
[2022-01-06] MEDS: IRON SUCROSE COMPLEX 100 MG/5 ML VIAL IV SCH (09:57)
[2022-01-06] MEDS: LISINOPRIL 10 MG TABLET PO SCH (09:57)
[2022-01-06] MEDS: DOCUSATE SODIUM 100 MG CAPSULE PO SCH ×2 (09:57→20:36)
[2022-01-06] MEDS ORDERED: FUROSEMIDE 40 MG/4 ML VIAL IV SCH (10:20)
[2022-01-06] MEDS: FUROSEMIDE 40 MG/4 ML VIAL IV SCH (12:03)
--- NOTE | 2022-01-06 12:19 | Discharge Summary ---
Discharge Provider Provider IMPORTANT FOLLOW-UP INFORMATION FOR PCP: Patient information: Note initiated : 01/06/22 at 12:18 pm Service Date, if different from initiated Date: [] Patient: Tfifany Contreras 51 y/o F admitted on 01/03/22 for CHF. Chief Complaint: [] Date of admission: 01/03/22 21:36 Discharge date: 01/07/22 Primary care physician: PCP No Consults: 01/03/22 Consult to Physician [CONS] Stat Comment: Consulting Provider: Tolu Flynn Reason For Exam: Physician to Consult Consult to Physician [CONS] Stat Comment: Consulting Provider: Tolu Flynn Reason For Exam: Physician to Consult COURSE Hospital Course Hospital course: Interval history: Ms. Contreras is a 51-year-old female with a history of hypertension previously treated with lisinopril but currently untreated, tobacco use disorder, obesity who presented to the emergency department with about 3 weeks of shortness of breath. The patient also endorses orthopnea symptoms over the last couple of weeks. Prior to the onset of her symptoms, the patient says she did not have any limitations secondary to shortness of breath but now she can barely accomplish simple activities of daily living without dyspnea. Associated with these symptoms are abdominal distention, bilateral lower extremity edema and diarrhea. The patient denies recent fevers chills, no chest pains. The patient denies alcohol use and substance use in general except for tobacco which she recently discontinued because she was short of breath. In the emergency department the patient was found to have a microcytic anemia with a hemoglobin of 9.8. Renal function and electrolytes were stable, the patient did have an elevated total bilirubin of 2.0 with a direct bilirubin component of 0.3. AST was mildly elevated at 41. NT proBNP was elevated at 9044. Chest x-ray was consistent with pulmonary vascular congestion. Clinically the patient appears to be an congestive heart failure. 11/10 Elevated blood pressure overnight and hypoxic while sleeping however the patient is on room air while awake. Diuresing well with IV Lasix 40 mg every 12 hours. Started lisinopril for elevated blood pressure. Patient likely has sleep apnea given nocturnal hypoxia, she is agreeable to try CPAP at bedtime. Later, the transthoracic echocardiogram report became available showing an LVEF of 25 to 30%, mildly dilated right ventricle, mildly reduced right ventricular systolic function. There was moderate mitral regurgitation and moderate tricuspid regurgitation. Started low-dose Toprol given reduced LVEF. Iron studies consistent with iron deficiency anemia, started Venofer IV. Patient has never had a colonoscopy, has not noticed melena or bloody stools. She denies recent vaginal bleeding. Hemoglobin level stable. Haptoglobin level normal. Urine protein creatinine level was mildly elevated at .54. TSH was normal. 01/05 Vital stable overnight, the patient did require oxygen supplementation once again when sleeping. She did not tolerate the CPAP. Potassium low normal, replaced. Hemoglobin improving. Still volume overloaded, continue Lasix 40 mg every 12 hours, diuresing well. 01/06 Patient feeling much better. Breathing is continue to get better. Still has some mild shortness of breath but much better. Occasional cough. Edema much improved. 01/07 Feeling much better. Breathing much improved. On room air awake. A: #Acute systolic(25-30%) heart failure: #Acute hypoxic respiratory failure: 2/2 above #Iron deficiency anemia, stable: #Hyperbilirubinemia: improving #Diarrhea: resolved #Essential hypertension: #Obesity: BMI 47 #Probable obstructive sleep apnea: Plan -Lasix -Continue Lisinopril/Toprol, consider adding spironolactone prior to discharge -PO iron supp -f/u with cardiology for new Heart Failure -f/u with pulmonolgy for LIZ eval Discharge diagnosis: Acute systolic heart failure acute hypoxic respite failure iron deficiency Secondary discharge diagnosis: Hyperbilirubinemia diarrhea hypertension obesity probable obstructive sleep apnea Time Spent with Patient Time attestation: Total time spent providing and/or coordinating discharge services: Time spent: Greater than 30 minutes EXAM Constitutional Vitals: Temp Pulse Resp BP Pulse Ox O2 Del Method O2 Flow Rate 97.9 F 73 17 169/99 96 2 01/06/22 12:03 01/06/22 12:03 01/06/22 12:03 01/06/22 12:03 01/06/22 12:03 01/06/22 06:04 01/06/22 06:04 Discharge Data Data Completed and Pending Labs on day of discharge: Labs from last 24 hours 01/06/22 01/06/22 04:12 04:12 WBC 9.6 RBC 5.01 Hgb 10.0 L Hct 34.5 MCV 68.9 L MCH 20.0 L MCHC 29.0 L RDW 19.3 H Plt Count 218 MPV ---- Immature Gran % (Auto) 0.4 Neut % (Auto) 69.6 Lymph % (Auto) 17.2 [place] % (Auto) 9.4 Eos % (Auto) 3.0 Baso % (Auto) 0.4 Lymph # (Auto) 1.64 [place] # (Auto) 0.90 Eos # (Auto) 0.29 Baso # (Auto) 0.04 Immature Gran # 0.04 Absolute Neutrophils 6.65 Sodium 141 Potassium 3.6 Chloride 102 Carbon Dioxide 31 H Anion Gap 8.0 BUN 17 Creatinine 1.0 GFR Calculation 65 Glucose 72 Uric Acid 7.8 Calcium 9.5 Phosphorus 4.6 H Magnesium 2.2 Total Bilirubin 1.2 H Direct Bilirubin 0.3 H GGT 17 AST 20 ALT 15 Alkaline Phosphatase 64 Lactate Dehydrogenase 287 H Total Protein 6.0 Albumin 3.3 Globulin 2.7 Albumin/Globulin Ratio 1.2 Triglycerides 81 Discharge Plan Patient/Caregiver Discharge Instructions Activity: increase activity as tolerated Diet: Regular Diet Activity Restrictions/Additional Instructions: Follow-up with PCP in 3 to 7 days. Referral to see cardiology in 3 to 14 days for new heart failure Referral to see pulmonology for obstructive sleep apnea work-up. Prescriptions: New metoprolol succinate [Toprol XL] 50 mg tablet extended release 24 hr 50 mg PO QDAY Qty: 30 0RF furosemide [Lasix] 40 mg tablet 40 mg PO QAM Qty: 30 0RF polysaccharide iron complex [Ferrex 150] 150 mg iron capsule 150 mg PO QDAY Qty: 60 0RF Continued lisinopril 10 mg Tablet 10 mg PO QDAY Follow Up Plan Patient Disposition: Home, Self-Care Overall status at discharge: patient is progressing back to baseline Discharge Orders: Discharge Order (Routine); Ordered 01/07/22 Ordered By: Juan Styles [facility] VTE Deep Vein Thrombosis/Pulmonary Embolism Present on Admission: No
[2022-01-06] MEDS ORDERED: METOPROLOL SUCCINATE 25 MG TAB.XL.24H PO SCH (21:00)
[2022-01-07] MEDS: 0.9 % SODIUM CHLORIDE 10 ML SYRINGE IV SCH (05:31)
[2022-01-07 07:11] LABS: ALT/SGPT 14 U/L (<40); AST/SGOT 17 U/L (<32); Albumin 3.3 gm/dL (3.2-5.2); Albumin/Globulin Ratio 1.2 (1.0-2.3); Alkaline Phosphatase 68 U/L (39-117); Bilirubin,Direct < 0.2 mg/dL (0-0.3); Bilirubin,Total 0.8 mg/dL (0.1-1.0); Blood Urea Nitrogen 16 mg/dL (6-20); Calcium 9.3 mg/dL (8.6-10.4); Carbon Dioxide 25 mmol/L (22-30); Chloride 102 mmol/L (96-108); Globulin 2.8 gm/dL (2.2-3.7); Glomerular Filtration Rate 65; Glucose 95 mg/dL (70-105); Lactate Dehydrogenase 250 U/L (135-225); Phosphorous 4.3 mg/dL (2.5-4.5); Triglycerides 92 mg/dL (<150); Uric Acid 8.3 mg/dL (2.5-8.0)
[2022-01-07] MEDS: LISINOPRIL 10 MG TABLET PO SCH (09:07)
[2022-01-07] MEDS: ENOXAPARIN 40 MG/0.4 ML SYRINGE SQ SCH (09:07)
[2022-01-07] MEDS: IRON SUCROSE COMPLEX 100 MG/5 ML VIAL IV SCH (09:07)
[2022-01-07] MEDS: DOCUSATE SODIUM 100 MG CAPSULE PO SCH (09:07)
--- NOTE | 2022-01-11 18:13 | EKG ---
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
== END 2022-01-07 11:25 | disposition home or self-care (01) | DRG 291 ==
LOC: ED 16:12 → ICU 21:36
PROVIDERS: ADMIT Internal Medicine; ATTEND Internal Medicine